=== PATIENT | female | born 1940 | race Caucasian/White ===

== ENCOUNTER 2021-07-30 13:03 | Outpatient (RCR) | payer MEDICARE | END 2021-08-02 | LOC: PT 13:03 | PROVIDERS: ATTEND Neurological Surgery | DX: M48.061 Spinal stenosis, lumbar region without neurogenic claudication (principal) ==

== ENCOUNTER 2021-08-18 15:53 | Outpatient (RCR) | payer MEDICARE | END 2021-09-02 | LOC: PT 15:53 | PROVIDERS: ATTEND Neurological Surgery | DX: M48.061 Spinal stenosis, lumbar region without neurogenic claudication (principal) ==

== ENCOUNTER 2021-09-30 12:55 | Outpatient (RCR) | payer MEDICARE | END 2021-10-02 | LOC: PT 12:55 | PROVIDERS: ATTEND Neurological Surgery | DX: M48.061 Spinal stenosis, lumbar region without neurogenic claudication (principal) ==